=== PATIENT | female | born 1975 | race Caucasian/White ===

== ENCOUNTER 2023-08-29 21:59 | Emergency (ER) | payer OTHER ==
[~2023-08-29] VITALS: Ht 172.7 cm; Wt 63.5 kg
[2023-08-29 22:07] VITALS: TEMP 98.3
[2023-08-29] MEDS ORDERED: ONDANSETRON HCL/PF 4 MG/2 ML VIAL ONE ×2 (22:19→23:18)
[2023-08-29] MEDS: ONDANSETRON HCL/PF - ER 4 MG/2 ML VIAL IV ONE ×2 (22:30→23:23)
[2023-08-29] MEDS: IV NS 0.9% 1,000 ML IV ONE (22:30)
[2023-08-29 22:50] LABS: BASOPHILS % (AUTO) 0.7 % (0.0-2.0); EOSINOPHILS % (AUTO) 0.2 % (0.0-6.0); HEMATOCRIT 35 % (33-45); HEMOGLOBIN 11.9 g/dL (11.5-14.8); LYMPHOCYTES # (AUTO) 1.2 K/uL (0.8-4.8); LYMPHOCYTES % (AUTO) 21.1 % (20.0-44.0); MEAN CORPUSCULAR HEMOGLOBIN 30 PG (26.0-33.0); MEAN CORPUSCULAR HGB CONC 34 g/dl (31.0-36.0); MEAN CORPUSCULAR VOLUME 88 fL (82-100); MONOCYTES # (AUTO) 0.4 K/uL (0.1-1.30); MONOCYTES % (AUTO) 7.5 % (2.0-12.0); NEUTROPHILS # (AUTO) 3.9 K/uL (1.8-8.9); NEUTROPHILS % (AUTO) 70.5 % (43.0-81.0); PLATELET COUNT (AUTO) 210 K/uL (150-450); RED CELL DISTRIBUTION WIDTH 16.1 % (11.5-15.0); WHITE BLOOD COUNT (AUTO) 5.5 K/uL (4.3-11.0)
[2023-08-29 23:01] LABS: APPEARANCE,URINE CLEAR (CLEAR); BILIRUBIN,URINE 1+ (NEGATIVE); BLOOD, URINE NEGATIVE Ery/uL (NEGATIVE); COLOR,URINE YELLOW (YELLOW); KETONES,URINE TRACE mg/dL (NEGATIVE); LEUKOCYTE ESTERASE ,URINE TRACE (NEGATIVE); NITRITE, URINE NEGATIVE (NEGATIVE); PH,URINE 5.5 (5.0-8.0); PREGNANCY TEST URINE QUAL NEGATIVE (NEGATIVE); PROTEIN,URINE NEGATIVE (NEGATIVE); UGLUCOSE NEGATIVE (NEGATIVE); UROBILINOGEN,URINE 0.2 EU/dL (0.2)
[2023-08-29 23:02] LABS: ADD URINE CULTURE YES; BACTERIA,URINE Rare /HPF (None Seen); RBC,URINE 0-2 /HPF (0-2); SQUAMOUS EPITHELIAL CELL,UR Rare /HPF (None Seen)
[2023-08-29 23:05] LABS: ALANINE AMINOTRANSFERASE 21 U/L (12-78); ALBUMIN 3.8 g/dL (3.4-5.0); ALCOHOL, BLOOD 4 mg/dL (0-10); ALKALINE PHOSPHATASE 96 U/L (46-116); ASPARTATE AMINOTRANSFERASE 30 U/L (15-37); BILIRUBIN,TOTAL 0.9 mg/dL (0.2-1.0); CALCIUM, SERUM 9.1 mg/dL (8.5-10.1); CARBON DIOXIDE 25 mmol/L (21-32); CHLORIDE 87 mmol/L (98-107); CREATININE 0.9 mg/dL (0.6-1.3); GLUCOSE 104 mg/dL (74-106); LIPASE 43 U/L (16-77); POTASSIUM 3.8 mmol/L (3.5-5.1); SODIUM SERUM 125 mmol/L (136-145); TOTAL PROTEIN, SERUM 7.8 g/dL (6.4-8.2); UREA NITROGEN, BLOOD 5 mg/dL (7-18)
[2023-08-29 23:17] LABS: ACETAMINOPHEN <10 ug/ml (10-30); SALICYLATE 0.7 mg/dL (2.8-20.0)
[2023-08-29] MEDS ORDERED: METOCLOPRAMIDE HCL 10 MG/2 ML VIAL ONE (23:59)
[2023-08-30] MEDS: METOCLOPRAMIDE HCL 10 MG/2 ML VIAL IV ONE (00:07)
[2023-08-30 00:43] LABS: AMPHETAMINE, URINE NEGATIVE (NEGATIVE); BARBITURATE, URINE NEGATIVE (NEGATIVE); BENZODIAZEPINE, URINE NEGATIVE (NEGATIVE); CANNABINOID, URINE NEGATIVE (NEGATIVE); COCCAINE, URINE NEGATIVE (NEGATIVE); OPIATE, URINE NEGATIVE (NEGATIVE); PHENCYCLIDINE SCREEN,URINE NEGATIVE (NEGATIVE)
[2023-08-30] MEDS: IV NS 0.9% 1,000 ML IV ONE (00:50)
[2023-08-30] MEDS ORDERED: ONDA4TAB5 PO (01:17)
[2023-08-30] MEDS ORDERED: METO-295 PO (01:17)
[2023-08-30 01:29] VITALS: BP 151/89; O2SAT 99
[2023-09-04] MEDS ORDERED: CEPH-570 PO (06:53)
== END 2023-08-30 01:30 | disposition home or self-care (01) ==
LOC: ER 22:06
DX: E87.1 Hypo-osmolality and hyponatremia (principal); E86.0 Dehydration; R11.2 Nausea with vomiting, unspecified; R94.31 Abnormal electrocardiogram [ECG] [EKG]; F10.10 Alcohol abuse, uncomplicated; I10 Essential (primary) hypertension; F41.9 Anxiety disorder, unspecified; Y90.0 Blood alcohol level of less than 20 mg/100 ml
CPT/HCPCS: 99284; 96361 ×2; 96375; 93005; 96376; 85025; 87086; 83690; 84703; 81001; 36415; 80053; 80143; 80320; 80307; 96365; J2405 ×2; J7030 ×2; J2765; G0480